=== PATIENT | female | born 1980 | race Caucasian/White ===

== ENCOUNTER 2018-06-08 06:07 | Day surgery (SDC) | payer OTHER ==
[2018-06-02 10:30] VITALS: BMI 20.9
[2018-06-08] MEDS ORDERED: BUPIVACAINE HCL/PF 0.5% (5MG/ML) 10 ML VIAL ONE (07:18)
[2018-06-08] MEDS ORDERED: LIDOCAINE HCL 1%, 10 MG/ML (20ML VIAL) ONE (07:18)
[2018-06-08] MEDS ORDERED: LIDOCAINE HCL/PF 2% SDV 5ML VIAL ONE (07:25)
[2018-06-08] MEDS ORDERED: ceFAZolin SODIUM 1 GM VIAL ONE (07:26)
[2018-06-08] MEDS ORDERED: SODIUM CHLORIDE 0.9% P/F 10 ML VIAL IJ ONE (07:26)
[2018-06-08] MEDS ORDERED: DEXAMETHASONE SOD PHOSPHATE 4 MG/1 ML VIAL ONE (07:26)
[2018-06-08] MEDS ORDERED: PROPOFOL 20 ML ONE (07:27)
[2018-06-08] MEDS ORDERED: SUCCINYLCHOLINE CHLORIDE 200 MG/10 ML VIAL ONE (07:27)
[2018-06-08] MEDS ORDERED: MIDAZOLAM HCL 2 MG/2 ML SINGLE DOSE VIAL ONE (07:27)
[2018-06-08] MEDS ORDERED: DESFLURANE GAS 240 ML BOTTLE IH ONE (07:34)
[2018-06-08] MEDS ORDERED: SEVOFLURANE 250 ML BTL ONE (07:34)
--- NOTE | 2018-06-08 08:30 | HP ---
[facility]ellite [facility] - Chief Complaint Chief Complaint: left hand pain, numbness, mass History of Present Illness: left CTS and mass History Source: Patient Limitations to Obtaining History: No Limitations - Past Medical History Allergies/Adverse Reactions: Allergies Allergy/AdvReac Type Severity Reaction Status Date / Time No Known Allergies Allergy Verified 06/08/18 06:48 ...LMP: 06/02/18 - Current Medications Current Medications: Home Medications Medication Instructions Recorded Cholecalciferol (Vitamin D3) 400 unit PO DAILY 06/02/18 [Vitamin D3 -] L.acidoph,Paracasei, B.lactis 1 each PO DAILY 06/02/18 [Probiotic] Magnesium 200 mg PO HS 06/02/18 Zinc 50 mg PO DAILY 06/02/18 Satellite Physical Exam - Physical Examination Vital Signs: Vital Signs Period Temp Pulse Resp BP Sys/Aragon Pulse Ox Last 24 Hr 98.0 F 64 16 120/76 100 General Appearance: Well Nourished ENT: Clear Lung: Clear to auscultation Heart: Regular rate & rhythm Breasts: Soft Abdomen: Soft Extremities: No edema Satellite Impression/Plan - Impression/Plan Impression: left CTS and mass, 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
--- NOTE | 2018-06-08 09:37 | OP ---
Operative Note - Note: Operative Date: 06/08/18 ([facility]) Pre-Operative Diagnosis: left cts Operation: left ctr Post-Operative Diagnosis: Same as Pre-op Surgeon: David Gardner Assessment Nurse: Alberto Biggs Anesthesia: Local, MAC Specimens Removed: tenosynovium Estimated Blood Loss (mls): 0 (tourniquet) Operative Report Dictated: Yes
[2018-06-08] MEDS ORDERED: oxyCODONE HCL 5 MG TABLET PO PRN ×2 (10:25)
[2018-06-08] MEDS ORDERED: ONDANSETRON 4 MG/2 ML VIAL IVPUSH PRN (10:25)
--- NOTE | 2018-06-08 10:29 | SPEC ---
DATE OF OPERATION: 06/08/2018 PREOPERATIVE DIAGNOSIS: Left carpal tunnel syndrome and left hand mass, retinacular cyst. POSTOPERATIVE DIAGNOSIS: Left carpal tunnel syndrome and left hand mass, retinacular cyst. PROCEDURE: Left carpal tunnel release, tenosynovectomy, and mass/retinacular cyst excision. SURGEON: David Gardner MD PUMP SERVICER SUPERVISOR: Alberto Biggs MD ANESTHESIA: Michael Avina CRNA, MAC anesthesia, local injection of 12 mL of 0.5% Marcaine, 1% lidocaine mixed. DRAINS: None. COMPLICATIONS: None. SPECIMENS: 1. Tenosynovium, left wrist. 2. Mass/retinacular cyst, left hand. BLOOD LOSS: None. BLOOD GIVEN: None. FLUID REPLACEMENT: 700 mL. INDICATION: This patient is a 37-year-old female with a preoperative diagnosis of left carpal tunnel syndrome and mass/retinacular cyst, left hand. After understanding the potential risks, complications, alternatives, and benefits of surgery versus nonsurgical treatment, the patient elected to undergo this procedure. She understands that it is possible not all of her symptoms will go away, including she may have continued numbness. DESCRIPTION OF PROCEDURE: The patient was brought to the operating room, peripheral IV placed and intravenous sedation was given. One gram of intravenous Ancef was given. MAC anesthesia was induced. A tourniquet was applied to the left upper arm and the left upper extremity was prepped and draped in sterile fashion. The entire case was done under 3.8 loupe magnification. A marking pen was utilized to tyshawn out a longitudinal incision in an already existing skin crease. Twenty mL of 0.5% Marcaine mixed with 1% Lidocaine was injected in and around the surgical incision. The left upper extremity was elevated, exsanguinated with an Esmarch bandage and the tourniquet inflated to 250 mmHg. A No. 15 scalpel blade was utilized to cut down through the skin. Subcutaneous hemostasis was achieved with the bipolar cautery. Dissection was done through the superficial palmar fascia. Self-retaining retractors were placed into the wound. Under direct visualization, the transverse carpal ligament was transected with a No. 15 scalpel blade, exposing the median nerve and the contents of the carpal tunnel. The distal and proximal extents of the release were completed with a Littler scissor and checked with irrigation and my small finger. They were seen to be complete. Limited dissection was done on the radial side of the median nerve and more extensive dissection was done on the ulnar side of the median nerve. The patients nerve was seen to be quite compressed by epineurium and therefore a limited epineurotomy was performed. A Ragnell retractor was used to gently retract the median nerve in a radial direction. The patient had a lot of tenosynovitis and therefore a tenosynovectomy was performed off all 9 flexor tendons. This was passed off the field as tenosynovium left wrist. The floor of the carpal tunnel was checked. There were no abnormal masses or ganglion cysts. The area was copiously irrigated and washed out and closure begun. Undyed 4-0 Vicryl was used to close the deep dermal layer. Final skin reapproximation was done with horizontal mattress 4-0 nylon sutures. The area was then washed and dried, covered with Xeroform, 4x4s, fluffs between the fingers, Webril and a 4-inch plaster roll was utilized to make a volar splint, which was then wrapped with Fernando and Coban. Next, our attention turned to the area of the cyst at the base of the middle finger. A 1-cm longitudinal incision was made. Subcutaneous hemostasis was achieved with the bipolar cautery. Dissection done down to the A1 jordy sheath area on the slightly ulnar aspect where a clear cyst was identified. It was quite hard but fluid-filled. At one point it popped during the dissection and classic ganglion cyst fluid came out. It was about 4 mm x 4 mm x 4 mm spherical. I was able to do a circumferential dissection, and then the cyst was excised in its entirety. The area was copiously irrigated and washed out. I could not feel or see any other abnormal tissue. This incision was closed with 4-0 undyed Vicryl in the deep dermal layer and 4-0 nylon single interrupted in horizontal mattress stitches in the skin. The tourniquet was taken down after a total tourniquet time of 28 minutes. There were no complications during the case. The patient tolerated the procedure well and was brought to the ambulatory recovery room in stable condition. Carlton [id number]
[2018-06-08] MEDS ORDERED: LACTATED RINGERS SOLUTION 1,000 ML IV SCH (10:30)
[2018-06-08 11:53] VITALS: BP 100/70; PULSE 68; TEMP 98.6
--- NOTE | 2018-06-09 13:47 | PATH ---
Surgical Pathology Report Patient Name: VASILIY GUERRA [facility]. Rec. #: [id number] /Age/Gender: 1980 (Age: 37) / F Account: [id number] Location: [facility] [place] SUR[facility]ICAL Taken: 06/08/2018 Received: 06/08/2018 Reported: 06/09/2018 Physicians: David Gardner M.D. Specimen(s) Received A: TENOSYNOVIUM LEFT HAND B: CYST LEFT HAND Clinical History CTS Final Diagnosis A. TENOSYNOVIUM, LEFT, CARPAL TUNNEL RELEASE: BENIGN FIBROCONNECTIVE TISSUE. B. HAND, LEFT, CYST, EXCISION: BENIGN DENSE FIBROCONNECTIVE TISSUE WITH DEGENERATIVE CHANGES CONSISTENT WITH GANGLION/RETINACULAR CYST Electronically Signed Wilma Richardson M.D. Gross Description A. Received in formalin labeled "tenosynovium left," is a 2.0 x 1.8 x 0.3 cm aggregate of rios soft tissue fragments, consistent with tenosynovium. The specimen is submitted in toto in one cassette. B. Received in formalin labeled "cyst left hand," is a 0.4 cm in greatest dimension rios soft tissue fragment. The specimen is submitted in toto in one cassette. 06/08/201806/08/2018
== END 2018-06-08 11:50 | disposition home or self-care (01) ==
LOC: JASU-SURG 06:07
PROVIDERS: ATTEND Orthopaedic Surgery
PROC: 01N50ZZ Release Median Nerve, Open Approach (ICD-10-PCS; 2018-06-08)
PROC: 0LB80ZZ Excision of Left Hand Tendon, Open Approach (ICD-10-PCS; principal; 2018-06-08 08:00)
DX: G56.02 Carpal tunnel syndrome, left upper limb (principal); M67.442 Ganglion, left hand
CPT/HCPCS: 84703; 88304-TC